=== PATIENT | female | born 1950 | race Caucasian/White ===

== ENCOUNTER → 2016-09-06 | Outpatient (CLI) | payer OTHER ==
[~2016-09-06] MED LIST: CYCLOBENZAPRINE10 MG PO; NAPROSYN500 MG PO; NKHM; NORCO 5-325 TA1 EACH PO; SKELAXIN800 M1 PO; VICODIN ES 7501 TAB PO
[2016-09-06 10:31] LABS: HEMOGLOBIN A1c 4.8 % (4.8-5.6)
[2016-09-06 10:48] LABS: ALBUMIN 3.9 gm/dl (3.1-4.5); ALKALINE PHOSPHATASE 110 U/L (45-117); BILIRUBIN, DIRECT 0.1 mg/dL (0.0-0.2); BILIRUBIN, TOTAL 0.6 mg/dl (0.2-1.0); BUN 9 mg/dl (7-24); CHOLESTEROL 218 mg/dL (<200); EST GLOM FILT AFRICAN AMERICAN > 60 ml/min; GLUCOSE 92 mg/dL (65-99); HDL CHOLESTEROL 79 mg/dl (40-60); LDL CHOLESTEROL 108 mg/dL (9-159); SGOT/AST 23 IU/L (3-35); SGPT/ALT 31 U/L (12-78); TOTAL PROTEIN 6.8 gm/dL (6.4-8.2); TRIGLYCERIDES 154 mg/dl (<150); VLDL CHOLESTEROL 31 mg/dL (6-40)
== END | disposition home or self-care (01) ==
LOC: LAB 09:59
PROVIDERS: Internal Medicine
DX: E78.4 Other hyperlipidemia (principal); E55.9 Vitamin D deficiency, unspecified; R73.02 Impaired glucose tolerance (oral); R74.8 Abnormal levels of other serum enzymes; Z79.1 Long term (current) use of non-steroidal anti-inflammatories (NSAID)

== ENCOUNTER → 2017-03-22 | Outpatient (CLI) | payer OTHER ==
[2017-03-22 10:40] LABS: ALBUMIN 3.7 gm/dl (3.1-4.5); BILIRUBIN, DIRECT 0.2 mg/dL (0.0-0.2); TOTAL PROTEIN 6.6 gm/dL (6.4-8.2)
== END | disposition home or self-care (01) ==
LOC: LAB 09:45
PROVIDERS: Internal Medicine
DX: E78.4 Other hyperlipidemia (principal); E55.9 Vitamin D deficiency, unspecified; R73.02 Impaired glucose tolerance (oral)

== ENCOUNTER → 2017-09-21 | Outpatient (CLI) | payer OTHER | END | disposition home or self-care (01) | LOC: ORTHO 00:21 | DX: M25.562 Pain in left knee (principal) ==

== ENCOUNTER → 2018-01-17 | Outpatient (CLI) | payer OTHER | END | disposition home or self-care (01) | LOC: RAD 10:52 | DX: Z13.820 Encounter for screening for osteoporosis (principal); N95.9 Unspecified menopausal and perimenopausal disorder ==

== ENCOUNTER 2018-05-24 21:06 | Inpatient (IN) | payer OTHER ==
--- NOTE | ~2018-05-24 | WRIGHTHP ---
[place], [place] PATIENT HISTORY AND PHYSICAL EXAM NAME: BREANAN JAQUEZ [facility] #: [id number] UNIT #: [id number] ROOM: 415 DOCTOR: BHARATH HAZEL MD BIRTHDATE: [birth year] DOS: 05/24/2018 HISTORY OF PRESENT ILLNESS: The patient is a 67-year-old female with a past medical history of: 1. Nicotine smoke dependence. 2. GERD and esophagitis. 3. Postmenopausal osteoporosis. 4. Vitamin D deficiency. 5. Urinary incontinence. The patient presented to my office yesterday with complaints of poor appetite, feeling sick and later on developing diarrhea. The patient was given oral rehydration salts to treat her dehydration and serum electrolytes were all ordered. Later on in the evening lab called me with a critically low sodium of 118 and the patient was sent over to the Emergency Department for further evaluation. In the ER, the patient was found to be hypovolemic, dehydrated and after initial evaluation admitted for further treatment. Following admission, the patient is starting to feel better with hydration and normal saline. The patient also has hypokalemia. No chest pain. No shortness of breath. No other GI or urinary symptoms. REVIEW OF SYSTEMS: LUNGS: No increasing shortness of breath. GASTROINTESTINAL: The patient with diarrhea and poor appetite. CARDIOVASCULAR: No chest pains or palpitations. FAMILY HISTORY: Noncontributory. HOME MEDICATIONS: Fosamax, vitamin D, glucosamine, oxybutynin. PHYSICAL EXAMINATION: GENERAL: Alert and oriented x 3, in no visible distress, just looking weak, generalized weakness. VITAL SIGNS: Blood pressure 87/46, heart rate of 91 beats per minute, breathing 18 times per minute, temperature of 99.7 degrees Fahrenheit. HEENT AND NECK: Extraocular movements are intact. Sclerae are anicteric. Oral mucosa is moist and clean. No obvious facial weakness. Neck is supple without any lymphadenopathy. No thyromegaly. No JVD. No carotid arterial bruits. LUNGS: Clear to auscultation. No wheezing. No rhonchi. CARDIOVASCULAR SYSTEM: Heart rate is regular in rate and rhythm. S1 and S2 normally audible. No significant murmur or any other abnormal cardiac sounds. ABDOMEN: Soft, nontender. No obvious organomegaly. Bowel sounds are present. No obvious herniation. EXTREMITIES: Without significant cyanosis or edema. Warm to touch. CENTRAL NERVOUS SYSTEM: Alert and oriented x 3. Cranial nerves II-XII are intact. Speech is normal. The patient is able to move all extremities. Normal muscle strength. Deep tendon reflexes are equal on both sides. Plantars were downgoing. IMPRESSION AND PLAN: [place], [place] PATIENT HISTORY AND PHYSICAL EXAM [facility]: [id number] #: [id number] ROOM: [facility] DOCTOR: BHARATH HAZEL MD BIRTHDATE: [birth year] 1. The patient presenting with hypovolemia and hypotension from diarrhea and poor appetite, admitted to the hospital and is being treated with hydration and being encouraged to eat. The patient's diarrhea has resolved. 2. Acute hyponatremia related to diarrhea and poor appetite, being replaced with normal saline. Sodium levels are improving. 3. Hypokalemia, again from diarrhea and poor appetite, is being replaced with extra potassium supplements. 4. Hypotension from hypovolemia from diarrhea and poor appetite, is being treated with hydration and blood pressures are improving. The patient is starting to feel better. 5. Generalized weakness from hypotension and dehydration. The patient has been encouraged to ambulate and she is starting to gain strength. BHARATH HAZEL MD CM:HISPHYS:PATIENT HISTORY AND PHYSICAL EXAMINATION 13 [phone] BHARATH HAZEL MD 05/25/181938 interface
--- NOTE | ~2018-05-24 | PR ---
[place], [place] PROGRESS NOTE NAME: BREANNA JAQUEZ UNIT #: [id number] ROOM: 415 DOCTOR: BHARATH HAZEL MD BIRTHDATE: [birth year] DOS: 05/28/2018 SUBJECTIVE: The patient continues to improve. OBJECTIVE: GENERAL APPEARANCE: The patient is alert and oriented x 3, in no visible distress. VITAL SIGNS: Blood pressure 134/70, heart rate of 80 beats per minute, breathing 22 times per minute, afebrile. HEENT AND NECK: Exam within normal limits. CARDIOVASCULAR SYSTEM: Heart rate is regular in rate and rhythm. S1 and S2 normally audible. LUNGS: Clear to auscultation. ABDOMEN: Soft, nontender. No obvious organomegaly. Bowel sounds are present. EXTREMITIES: Without significant cyanosis or edema. IMPRESSION: 1. The patient with severe dehydration, hyponatremia, hypokalemia, hypovolemia along with hypotension. Continues to improve with hydration with normal saline. Sodium level is normal now but the patient is still hypokalemic and will be given extra potassium supplements today. 2. Acute diarrhea with dehydration and hypovolemia, resolved. 3. Viral gastroenteritis and diarrhea with dehydration, poor appetite, has improved. The patient is eating and starting to eat better now. 4. Urinary tract infection with Escherichia coli sensitive to all antibiotics. The patient is being treated with IV Rocephin and improving. BHARATH HAZEL MD CM:PNTRANS [id number] BHARATH HAZEL MD 05/28/18 2354 interface
--- NOTE | ~2018-05-24 | EKG ---
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
--- NOTE | ~2018-05-24 | DS ---
[place], [place] DISCHARGE SUMMARY [id number] #: [id number] ROOM: 415 DOCTOR: BHARATH HAZEL MD BIRTHDATE: [birth year] DOS: 05/29/2018 DISCHARGE DIAGNOSES: 1. Severe hyponatremia related to diarrhea. 2. Hypovolemia and hypotension. 3. Viral gastroenteritis with diarrhea and dehydration and poor appetite. 4. Urinary tract infection with Escherichia coli sensitive to all antibiotics tested. 5. Hypokalemia from diarrhea. 6. Nicotine smoke dependence. 7. Gastroesophageal reflux disease and esophagitis. 8. Postmenopausal osteoporosis. 9. Vitamin D deficiency. 10. Chronic urinary incontinence. HOSPITAL COURSE: The patient presented to my office with poor appetite, feeling sick and also developing diarrhea. The patient decided not to get admitted to the hospital in my office and she was started on oral rehydration fluids at home. The patient ended up vomiting the rehydration fluids and her sodium level came back as 118 critically low from the blood work drawn in my office and later in the day, the patient was sent over to the Emergency Department by me and admitted for hydration with normal saline for hypovolemia, dehydration, from viral gastroenteritis. The patient's sodium level started improving and they become normal. Advanced weakness, adult failure to thrive and ambulatory dysfunction. The patient was kept on physical therapy and she improved and is feeling quite strong now. Hypokalemia from diarrhea improved with extra potassium supplements. Generalized weakness and hypotension, dehydration from diarrhea improved with treatment and physical therapy. Nausea controlled with ondansetron as needed. LABORATORY DATA: Stool cultures were negative. No leukocytosis. Hemoglobin 11.7 before discharge. Normal serum electrolytes, urinary tract infection with Escherichia coli, treated with IV Rocephin during this admission. DISCHARGE MANAGEMENT: The patient to take amoxicillin 500 mg 3 times a day for 5 more days, Fosamax 70 mg weekly. Vitamin C and multivitamins was discontinued. Oxybutynin 15 mg daily, glucosamine was also stopped. Vitamin D 5000 units daily, Citracal daily. Follow up at the office with me this week. [place], [place] DISCHARGE SUMMARY NAME: BREANNA JAQUEZ UNIT #: [id number] ROOM: 415 DOCTOR: BHARATH HAZEL MD BIRTHDATE: [birth year] BHARATH HAZEL MD CM:CAM [id number] BHARATH HAZEL MD 05/29/18 1454 interface
--- NOTE | ~2018-05-24 | PR ---
[place], [place] PROGRESS NOTE NAME: BREANNA JAQUEZ UNIT #: [id number] ROOM: 415 DOCTOR: ILIR SINHA,BHARATH Langston BIRTHDATE: [birth year] DOS: 05/27/2018 SUBJECTIVE: The patient is starting to feel better, but still somewhat weak, ambulating in the hallways. OBJECTIVE: VITAL SIGNS: Blood pressure 137/65, heart rate of 73 beats per minute, breathing normally, afebrile. IMPRESSION: 1. The patient with urinary tract infection with Escherichia coli, sensitive to all antibiotics, is being treated with IV Rocephin. 2. Severe hyponatremia from diarrhea and not being able to eat well from viral gastroenteritis, has resolved and sodium is normal at 137. 3. Generalized weakness and adult failure to thrive. The patient is to work with physical therapy. She is still feeling weak and is not back to her normal self. 4. Hypokalemia from diarrhea has resolved with extra potassium supplements and potassium level of 3.6 today. 5. Poor appetite from viral gastroenteritis and diarrhea and dehydration has improved with hydration with normal saline. 6. Uti with e-coli and treated and cystitis. BHARATH HAZEL MD CM:PNTRANS [phone] BHARATH HAZEL MD 06/15/18 0756 interface
--- NOTE | ~2018-05-24 | PR ---
[place], [place] PROGRESS NOTE NAME: BREANNA JAQUEZ UNIT #: [id number] ROOM: 415 DOCTOR: BHARATH HAZEL MD BIRTHDATE: [birth year] DOS: 05/26/2018 SUBJECTIVE: The patient continues to feel better. OBJECTIVE: GENERAL APPEARANCE: The patient is alert and oriented x 3, in no visible distress. VITAL SIGNS: Blood pressure 126/51, heart rate 83 beats per minute, breathing 16 times per minute, temperature 98.4 degrees Fahrenheit, going up to 99.7 degrees Fahrenheit. HEENT AND NECK: Exam within normal limits. CARDIOVASCULAR SYSTEM: Heart rate is regular in rate and rhythm. S1 and S2 normally audible. LUNGS: Clear to auscultation. ABDOMEN: Soft, nontender. No obvious organomegaly. Bowel sounds are present. EXTREMITIES: Without significant cyanosis or edema. IMPRESSION: 1. Urinary tract infection with heavy gram-negative bacilli, to be treated with Rocephin and then I will wait for final culture results. 2. Poor appetite, diarrhea and dehydration, being treated with hydration with normal saline. 3. Severe hyponatremia related to diarrhea, has improved to 134 as compared to 118 at the time of admission. 4. Hypokalemia from dehydration. I will give her extra potassium supplements today. 5. Generalized weakness, hypotension and dehydration, all improved with hydration with normal saline. BHARATH HAZEL MD CM:PNTRANS [phone] BHARATH HAZEL MD 05/27/18 0718 interface
[2018-05-24 21:08] VITALS: BP 98/45
[2018-05-24 22:00] LABS: ALBUMIN 2.8 gm/dl (3.1-4.5); ALKALINE PHOSPHATASE 319 U/L (45-117); BUN 8 mg/dl (7-24); CHLORIDE 89 mmol/L (98-107); CREATININE 0.94 mg/dL (0.55-1.02); POTASSIUM 3.4 mmol/L (3.5-5.1); SGOT/AST 23 IU/L (3-35); SGPT/ALT 64 U/L (12-78); SODIUM 122 mmol/L (136-145)
[2018-05-24 22:01] LABS: TROPONIN I < 0.015 ng/ml (<0.045)
--- NOTE | 2018-05-24 22:02 | NUR ---
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 PT GAIT UNSTEADY AT THIS TIME.
[2018-05-24 22:06] LABS: HEMATOCRIT 36.1 % (37.0-47.0); MEAN CELL VOLUME 86.6 fl (81.0-99.0); MEAN CORPUSCULAR HGB 33.6 pg (27.0-31.0); MEAN PLATELET VOLUME 9.3 fl (9.6-12.3); PLATELET COUNT AUTOMATED 171 10*3/uL (130-400); RED BLOOD COUNT 4.17 10*6/uL (4.10-5.10); RED CELL DISTRI WIDTH 11.9 % (0-14.5); WHITE BLOOD COUNT 11.2 10*3/uL (4.8-10.8)
--- NOTE | 2018-05-24 22:09 | NUR ---
PT ASSISTED BACK TO BED, UNABLE TO VOID AT THIS TIME.
[2018-05-24 22:10] VITALS: BP 91/44
[2018-05-24 22:10] LABS: MEAN CORPUSCULAR HGB CONC 38.8 g/dl (33.0-37.0)
[2018-05-24 22:13] LABS: PLATELET SUFFICIENCY NORMAL (NORMAL); TOTAL CELLS COUNTED 100 #CELLS
[2018-05-24 22:14] LABS: POLYCHROMASIA SLIGHT
[2018-05-24 22:16] LABS: BURR CELLS FEW
[2018-05-24 22:44] VITALS: BP 98/35
[2018-05-24 23:20] VITALS: BP 111/54
--- NOTE | 2018-05-24 23:20 | NUR ---
A 67, admitted to 4E, under the services of Dr. ILIR SINHA,BHARATH Langston with a diagnosis of HYPONATREMIA. Chief complaint is N/V/D, WEAKNESS. Patient arrived via stretcher from ER. Monitor applied. Initial assessment completed. Vital signs taken and recorded. DR. ILIR SINHA,BHARATH Langston notified of admission to the unit. Orders received. See assessment for past medical history, medications and allergies. Patient and/or family oriented to unit. Clothing/patient valuable form completed. MARCO ANTONIO GALVEZ
[2018-05-24] MEDS ORDERED: ALENDRONATE SOD70 M1 PO (23:35)
[2018-05-24] MEDS ORDERED: CALCIUM CARBON600 M4 PO (23:37)
[2018-05-24] MEDS ORDERED: VITAMIN D5000 UNIT PO (23:37)
[2018-05-24] MEDS ORDERED: CENTRUM SILVER1 EAC1 PO (23:37)
[2018-05-24] MEDS ORDERED: OSTEO BI-FLEX1 EACH PO (23:39)
[2018-05-24] MEDS ORDERED: PHARMASSURE VI500 MG PO (23:40)
[2018-05-24] MEDS ORDERED: OXYBUTYNIN CHLO15 MG PO (23:41)
--- NOTE | 2018-05-25 | NUR ---
CALLED DR. HAZEL AND NOTIFIED HIM OF PT. CONDITION AND ORDERS RECEIVED.
[2018-05-25 00:26] LABS: BILIRUBIN NEGATIVE (NEGATIVE); BLOOD 3+ (NEGATIVE); CLARITY SL CLOUDY (CLEAR); COLOR YELLOW (YELLOW); GLUCOSE NEGATIVE (NEGATIVE); KETONE NEGATIVE (NEGATIVE); LEUKO ESTERASE 3+ (NEGATIVE); NITRITE NEGATIVE (NEGATIVE); PH 6.5 (5.0-9.0); SPECIFIC GRAVITY <= 1.005 (1.005-1.030)
[2018-05-25 00:36] LABS: WBC 31-40 wbc/hpf (0-5)
[2018-05-25 00:37] LABS: BACTERIA 3+; RBC 21-30 rbc/hpf (0-2)
--- NOTE | 2018-05-25 03:20 | NUR ---
UP TO BATHROOM AND VOIDED CLEAR YELLOW URINE AND RETURNED TO BED AND WENT BACK TO SLEEP.
[2018-05-25 06:27] LABS: BUN 7 mg/dl (7-24); CHLORIDE 97 mmol/L (98-107); CREATININE 0.87 mg/dL (0.55-1.02); POTASSIUM 3.3 mmol/L (3.5-5.1); SODIUM 128 mmol/L (136-145)
[2018-05-25 06:57] LABS: HEMATOCRIT 31.6 % (37.0-47.0); MEAN CELL VOLUME 89.5 fl (81.0-99.0); MEAN CORPUSCULAR HGB 33.7 pg (27.0-31.0); MEAN PLATELET VOLUME 9.7 fl (9.6-12.3); PLATELET COUNT AUTOMATED 178 10*3/uL (130-400); RED BLOOD COUNT 3.53 10*6/uL (4.10-5.10); RED CELL DISTRI WIDTH 12.2 % (0-14.5); WHITE BLOOD COUNT 8.7 10*3/uL (4.8-10.8)
[2018-05-25 06:59] LABS: HEMOGLOBIN 11.9 g/dl (12.0-16.0); MEAN CORPUSCULAR HGB CONC 37.7 g/dl (33.0-37.0)
[2018-05-25 07:43] LABS: BURR CELLS MODERATE; PLATELET SUFFICIENCY NORMAL (NORMAL); TOTAL CELLS COUNTED 100 #CELLS
[2018-05-25 08:00] VITALS: BP 102/46
--- NOTE | 2018-05-25 09:00 | NUR ---
Buyer Liaison in to talk to patient. Patient states lives at home alone with her family checking in on her. There are 10 steps in the home. Physician: Dr. Cortez Estrada Pharmacy: [facility] Home health services: none Patient's level of ADLs: INDEPENDENT Patient has working utilities: yes DME: none Follow-up physician's appointment after d/c: she prefers to make her own follow up appt after discharge Does patient want to access PORTAL?: no Discharge plan discussed with patient. She lives at home alone with her family checking in on her. She is independent in her ADLs and ambulation. Discussed home health care services and she denies any home needs at this time. When medically stable she will be discharged to home. Her brother will transport on discharge. MAYRA LARA
[2018-05-25 12:00] VITALS: BP 100/56
[2018-05-25 16:00] VITALS: BP 87/46
[2018-05-25 16:30] VITALS: BP 98/52
--- NOTE | 2018-05-25 16:45 | NUR ---
NOTIFIED DR HAZEL,WHILE HE ROUNDED ON FLOOR,PT WAS STILL HYPOTENSIVE AND MANUAL PRESSURE WAS 98/52. DR HAZEL STATED HE "WOULD LOOK AT IT".
[2018-05-25 20:00] VITALS: BP 92/54
--- NOTE | 2018-05-25 20:41 | NUR ---
AWAKE/ALERT FOR BEDSIDE SHIFT REPORT. FAMILY MEMBER AT BEDSIDE.
[2018-05-26] VITALS: BP 90/47
--- NOTE | 2018-05-26 02:18 | NUR ---
PATIENT RESTING QUIETLY IN BED. NO VOICED COMPLAINTS AT THIS TIME. BED IN LOW POSITION, WHEELS LOCKED, CALL LIGHT IN REACH. IV FLUIDS MAINTAINED PER ORDER.
[2018-05-26 06:13] LABS: BASO % 0.2 % (0.0-1.0); EOS % 0.3 % (1.0-4.0); HEMATOCRIT 31.7 % (37.0-47.0); HEMOGLOBIN 11.3 g/dl (12.0-16.0); LYMPH # 0.5 10*3/uL (1.3-4.4); LYMPH % 8.6 % (27.0-41.0); MEAN CELL VOLUME 90.8 fl (81.0-99.0); MEAN CORPUSCULAR HGB 32.4 pg (27.0-31.0); MEAN CORPUSCULAR HGB CONC 35.6 g/dl (33.0-37.0); MONO # 0.5 10*3/uL (0.1-1.0); MONO % 8.1 % (3.0-9.0); NEUT # 4.9 10*3/uL (2.3-7.9); NEUT % 81.6 % (47.0-73.0); PLATELET COUNT AUTOMATED 218 10*3/uL (130-400); RED BLOOD COUNT 3.49 10*6/uL (4.10-5.10); RED CELL DISTRI WIDTH 12.5 % (0-14.5); WHITE BLOOD COUNT 5.9 10*3/uL (4.8-10.8)
[2018-05-26 06:19] LABS: BUN 7 mg/dl (7-24); CHLORIDE 104 mmol/L (98-107); CREATININE 0.73 mg/dL (0.55-1.02); POTASSIUM 3.4 mmol/L (3.5-5.1); SODIUM 134 mmol/L (136-145)
[2018-05-26 07:19] VITALS: BP 108/62
--- NOTE | 2018-05-26 09:00 | NUR ---
Shutdown Coordinator in to see patient. No new needs or request at this time. She denies any home needs. When medically stable she will be discharged to home.
[2018-05-26 12:00] VITALS: BP 108/54
[2018-05-26 16:00] VITALS: BP 126/51
[2018-05-26 20:00] VITALS: BP 141/65
--- NOTE | 2018-05-26 20:06 | NUR ---
AWAKE/ALERT FOR SHIFT ASSESSMENT. FAMILY MEMBER AT BEDSIDE. RESPIRATIONS EASY/REG ON RA. IV FLUIDS MAINTAINED PER ORDER. HEART MONITOR REMOVED AND RETURNED TO FLOOR PER DR HAZEL ORDER.
[2018-05-27] VITALS: BP 124/75
[2018-05-27 06:58] LABS: BASO % 0.3 % (0.0-1.0); EOS # 0.1 10*3/uL (0.0-0.4); EOS % 1.4 % (1.0-4.0); HEMATOCRIT 31.9 % (37.0-47.0); HEMOGLOBIN 11.4 g/dl (12.0-16.0); LYMPH % 15.4 % (27.0-41.0); MEAN CELL VOLUME 91.9 fl (81.0-99.0); MEAN CORPUSCULAR HGB 32.9 pg (27.0-31.0); MEAN CORPUSCULAR HGB CONC 35.7 g/dl (33.0-37.0); MEAN PLATELET VOLUME 9.1 fl (9.6-12.3); MONO # 0.6 10*3/uL (0.1-1.0); NEUT # 4.7 10*3/uL (2.3-7.9); NEUT % 73.1 % (47.0-73.0); PLATELET COUNT AUTOMATED 243 10*3/uL (130-400); RED BLOOD COUNT 3.47 10*6/uL (4.10-5.10); RED CELL DISTRI WIDTH 12.8 % (0-14.5); WHITE BLOOD COUNT 6.4 10*3/uL (4.8-10.8)
[2018-05-27 07:10] LABS: CHLORIDE 107 mmol/L (98-107); POTASSIUM 3.6 mmol/L (3.5-5.1); SODIUM 137 mmol/L (136-145)
[2018-05-27 07:17] LABS: BUN 6 mg/dl (7-24); CREATININE 0.64 mg/dL (0.55-1.02)
[2018-05-27 08:00] VITALS: BP 129/67
[2018-05-27 12:00] VITALS: BP 125/64
[2018-05-27 16:00] VITALS: BP 137/65
--- NOTE | 2018-05-27 16:06 | NUR ---
Patient states she is feeling better but is feeling weak.
[2018-05-27 20:00] VITALS: BP 136/70
--- NOTE | 2018-05-27 20:49 | NUR ---
AWAKE/ALERT FOR SHIFT ASSESSMENT. FAMILY MEMBERS AT BEDSIDE. RESPIRATIONS EASY/REG ON RA. NO VOICED COMPLAINTS AT THIS TIME. IV FLUIDS MAINTAINED PER ORDER, CALL LIGHT IN REACH
[2018-05-28] VITALS: BP 121/68
[2018-05-28 06:29] LABS: BASO % 0.4 % (0.0-1.0); EOS # 0.1 10*3/uL (0.0-0.4); EOS % 2.5 % (1.0-4.0); HEMATOCRIT 31.4 % (37.0-47.0); HEMOGLOBIN 10.7 g/dl (12.0-16.0); LYMPH # 1.1 10*3/uL (1.3-4.4); LYMPH % 20.1 % (27.0-41.0); MEAN CELL VOLUME 92.9 fl (81.0-99.0); MEAN CORPUSCULAR HGB 31.7 pg (27.0-31.0); MEAN CORPUSCULAR HGB CONC 34.1 g/dl (33.0-37.0); MONO # 0.6 10*3/uL (0.1-1.0); MONO % 10.9 % (3.0-9.0); NEUT # 3.4 10*3/uL (2.3-7.9); PLATELET COUNT AUTOMATED 248 10*3/uL (130-400); RED BLOOD COUNT 3.38 10*6/uL (4.10-5.10); RED CELL DISTRI WIDTH 12.9 % (0-14.5); WHITE BLOOD COUNT 5.2 10*3/uL (4.8-10.8)
[2018-05-28 06:34] LABS: BUN 6 mg/dl (7-24); CHLORIDE 108 mmol/L (98-107); POTASSIUM 3.4 mmol/L (3.5-5.1); SODIUM 140 mmol/L (136-145)
[2018-05-28 08:00] VITALS: BP 118/67
--- NOTE | 2018-05-28 09:00 | NUR ---
SITTING AT BEDSIDE, NO DISTRESS NOTED. RESPIRATIONS EASY. LUNGS DIMINISHED, CLEAR. PULSE OX 100% RA. INFREQ SMOKERS COUGH. ABD SOFT WITH NORMO BS, DENIES N/V/D. IV FLUIDS INFUSING PER ORDER. CALL LIGHT WITHIN REACH. NO VOICED COMPLAINTS
--- NOTE | 2018-05-28 10:05 | NUR ---
24 HR chart check completed.
[2018-05-28 12:00] VITALS: BP 134/70
--- NOTE | 2018-05-28 15:45 | NUR ---
DR HAZEL HERE TO ASSESS PATIENT AND DISCUSS PLAN OF CARE
[2018-05-28 16:00] VITALS: BP 129/62
--- NOTE | 2018-05-28 17:00 | NUR ---
VISITING WITH FRIEND. NO DISTRESS NOTED.
--- NOTE | 2018-05-28 19:00 | NUR ---
AMBULATING HALLWAY. NO DISTRES NOTED.
[2018-05-28 20:00] VITALS: BP 129/63
[2018-05-29] VITALS: BP 123/59
[2018-05-29 06:21] LABS: BUN 7 mg/dl (7-24); CHLORIDE 104 mmol/L (98-107); CREATININE 0.56 mg/dL (0.55-1.02); POTASSIUM 4.2 mmol/L (3.5-5.1); SODIUM 138 mmol/L (136-145)
[2018-05-29 06:32] LABS: BASO % 0.6 % (0.0-1.0); EOS # 0.2 10*3/uL (0.0-0.4); EOS % 2.3 % (1.0-4.0); HEMATOCRIT 33.9 % (37.0-47.0); HEMOGLOBIN 11.7 g/dl (12.0-16.0); LYMPH # 1.2 10*3/uL (1.3-4.4); LYMPH % 17.3 % (27.0-41.0); MEAN CELL VOLUME 93.6 fl (81.0-99.0); MEAN CORPUSCULAR HGB 32.3 pg (27.0-31.0); MEAN CORPUSCULAR HGB CONC 34.5 g/dl (33.0-37.0); MEAN PLATELET VOLUME 8.7 fl (9.6-12.3); MONO # 0.6 10*3/uL (0.1-1.0); MONO % 7.9 % (3.0-9.0); NEUT # 4.9 10*3/uL (2.3-7.9); NEUT % 70.5 % (47.0-73.0); RED BLOOD COUNT 3.62 10*6/uL (4.10-5.10); RED CELL DISTRI WIDTH 12.6 % (0-14.5)
[2018-05-29 06:35] LABS: PLATELET COUNT AUTOMATED 333 10*3/uL (130-400)
[2018-05-29 08:00] VITALS: BP 122/56
--- NOTE | 2018-05-29 10:00 | NUR ---
CALLED DR HAZEL TO LET HIM KNOW THAT THE PATIENT'S LABS FOR SODIUM AND CHLORIDE WERE WITHIN NORMAL LIMITS AND THAT THE PATIENT HAS BEGUN TO ACCUMULATE FLUID IN HER LOWER EXTREMITIES WITH 1+ PITTING EDEMA. REQUESTED TO STOP THE PATIENT'S FLUIDS. NEW ORDER TO STOP RECEIVED.
[2018-05-29 12:00] VITALS: BP 120/66
[2018-05-29] MEDS ORDERED: AMOXICILLIN500 M3 PO (14:14)
--- NOTE | 2018-05-29 15:13 | NUR ---
Discharge instructions reviewed with patient/family. Patient receptive and verbalizes understanding. Follow-up care arranged. Written instructions given to patient/family. Patient taken from the floor via wheelchair by aide. No s/s of distress. ADALBERTO HILL
[2018-08-23] MEDS ORDERED: MULTIVITAMINS1 EAC5 PO (10:34)
[2018-08-23] MEDS ORDERED: OSTEO BI-FLEX1 EAC1 PO (10:36)
== END 2018-05-29 15:13 | disposition home or self-care (01) | DRG 690 ==
LOC: ED 21:06 → 4E 22:48 → EDHOLD 22:48 → 4E 22:56
PROVIDERS: Physician Assistant; ADMIT Internal Medicine
DX: N39.0 Urinary tract infection, site not specified (principal); E87.1 Hypo-osmolality and hyponatremia; E44.1 Mild protein-calorie malnutrition; E86.0 Dehydration; I25.10 Atherosclerotic heart disease of native coronary artery without angina pectoris; Z95.1 Presence of aortocoronary bypass graft; Z98.51 Tubal ligation status; Z72.89 Other problems related to lifestyle; F17.200 Nicotine dependence, unspecified, uncomplicated; K21.0 Gastro-esophageal reflux disease with esophagitis; M81.0 Age-related osteoporosis without current pathological fracture; E55.9 Vitamin D deficiency, unspecified; E87.6 Hypokalemia; I95.9 Hypotension, unspecified; B96.20 Unspecified Escherichia coli [E. coli] as the cause of diseases classified elsewhere; A08.4 Viral intestinal infection, unspecified; Z68.28 Body mass index [BMI] 28.0-28.9, adult

== ENCOUNTER 2020-09-01 12:06 | Emergency (ER) | payer OTHER ==
[~2020-09-01] VITALS: Ht 165.1 cm; Wt 68.0 kg
[~2020-09-01 12:06] MED LIST changes: +ALENDRONATE SOD70 M1 PO; +AMOXICILLIN500 M3 PO; +CALCIUM CARBON600 M4 PO; +CENTRUM SILVER1 EAC1 PO; +MULTIVITAMINS1 EAC5 PO; +OSTEO BI-FLEX1 EAC1 PO; +OSTEO BI-FLEX1 EACH PO; +OXYBUTYNIN CHLO15 MG PO; +PHARMASSURE VI500 MG PO; +VITAMIN D5000 UNIT PO
[2020-09-01 12:55] LABS: BILIRUBIN Negative (Negative); BLOOD 2+ (Negative); CLARITY Clear (Clear); COLOR Yellow (Yellow); GLUCOSE Negative (Negative); KETONE Negative (Negative); LEUKO ESTERASE Negative (Negative); NITRITE Negative (Negative); PH 6.5 (4.5-8.0); SPECIFIC GRAVITY <= 1.005 (1.001-1.030); UROBILINOGEN 0.2 E.U./dl (0.0-1.0)
[2020-09-01 13:04] LABS: BACTERIA TRACE; EPITHELIAL CELLS 0-2; WBC 0-2 wbc/hpf (0-5)
[2020-09-01 13:07] LABS: BASO % 0.5 % (0.0-1.0); EOS # 0.1 10*3/uL (0.0-0.4); EOS % 1.5 % (1.0-4.0); HEMATOCRIT 36.7 % (37.0-47.0); LYMPH # 1.2 10*3/uL (1.3-4.4); LYMPH % 15.8 % (27.0-41.0); MEAN CELL VOLUME 85.9 fl (81.0-99.0); MEAN CORPUSCULAR HGB 30.9 pg (27.0-31.0); MEAN PLATELET VOLUME 8.9 fl (9.6-12.3); MONO # 0.4 10*3/uL (0.1-1.0); MONO % 5.6 % (3.0-9.0); NEUT # 5.8 10*3/uL (2.3-7.9); NEUT % 76.5 % (47.0-73.0); PLATELET COUNT AUTOMATED 257 10*3/uL (130-400); RED BLOOD COUNT 4.27 10*6/uL (4.10-5.10); RED CELL DISTRI WIDTH 13.4 % (0-14.5); WHITE BLOOD COUNT 7.6 10*3/uL (4.8-10.8)
[2020-09-01 13:21] LABS: ALBUMIN 3.9 gm/dl (3.1-4.5); ALKALINE PHOSPHATASE 302 U/L (45-117); BUN 9 mg/dl (7-24); CHLORIDE 98 mmol/L (98-107); CREATININE 0.62 mg/dL (0.55-1.02); SGOT/AST 25 IU/L (3-35); SGPT/ALT 38 U/L (12-78); SODIUM 129 mmol/L (136-145); TOTAL PROTEIN 7.1 gm/dL (6.4-8.2)
[2020-09-01] MEDS ORDERED: DIFLUCAN150 MG PO (13:36)
[2020-09-01] MEDS ORDERED: CIPRO500 MG PO (13:36)
== END 2020-09-01 14:02 | disposition home or self-care (01) ==
LOC: ED 12:06
PROVIDERS: Family Medicine
DX: N39.0 Urinary tract infection, site not specified (principal); F17.200 Nicotine dependence, unspecified, uncomplicated; Z79.899 Other long term (current) drug therapy; Z98.890 Other specified postprocedural states

== ENCOUNTER 2020-09-03 03:39 | Emergency (ER) | payer OTHER ==
[~2020-09-03] VITALS: Ht 165.1 cm; Wt 68.0 kg
[~2020-09-03 03:39] MED LIST changes: +CIPRO500 MG PO; +DIFLUCAN150 MG PO
[2020-09-03] MEDS ORDERED: ULTRAM50 MG PO (05:02)
== END 2020-09-03 05:22 | disposition home or self-care (01) ==
LOC: ED 03:39
DX: M19.90 Unspecified osteoarthritis, unspecified site (principal); F17.200 Nicotine dependence, unspecified, uncomplicated; Z98.51 Tubal ligation status; Z98.890 Other specified postprocedural states; Z79.899 Other long term (current) drug therapy; Z87.442 Personal history of urinary calculi

== ENCOUNTER → 2020-10-02 | Outpatient (CLI) | payer MEDICARE ==
[~2020-10-02] MED LIST changes: +ULTRAM50 MG PO
[2020-10-02 11:09] LABS: BASO # 0.1 10*3/uL (0.0-0.1); BASO % 0.8 % (0.0-1.0); EOS # 0.2 10*3/uL (0.0-0.4); EOS % 2.4 % (1.0-4.0); HEMATOCRIT 39.3 % (37.0-47.0); LYMPH # 1.3 10*3/uL (1.3-4.4); LYMPH % 20.5 % (27.0-41.0); MEAN CELL VOLUME 89.5 fl (81.0-99.0); MEAN CORPUSCULAR HGB 30.8 pg (27.0-31.0); MEAN CORPUSCULAR HGB CONC 34.4 g/dl (33.0-37.0); MEAN PLATELET VOLUME 8.9 fl (9.6-12.3); MONO # 0.4 10*3/uL (0.1-1.0); MONO % 6.1 % (3.0-9.0); NEUT # 4.6 10*3/uL (2.3-7.9); PLATELET COUNT AUTOMATED 267 10*3/uL (130-400); RED BLOOD COUNT 4.39 10*6/uL (4.10-5.10); RED CELL DISTRI WIDTH 12.9 % (0-14.5); WHITE BLOOD COUNT 6.5 10*3/uL (4.8-10.8)
[2020-10-02 11:36] LABS: ALBUMIN 4.1 gm/dl (3.1-4.5); ALKALINE PHOSPHATASE 286 U/L (45-117); BUN 8 mg/dl (7-24); CHLORIDE 100 mmol/L (98-107); CHOLESTEROL 151 mg/dL (<200); CREATININE 0.71 mg/dL (0.55-1.02); FREE T4 1.01 ng/dl (0.76-1.46); LDL CHOLESTEROL 50 mg/dL (9-159); POTASSIUM 4.2 mmol/L (3.5-5.1); SGOT/AST 31 IU/L (3-35); SGPT/ALT 67 U/L (12-78); SODIUM 132 mmol/L (136-145); TOTAL PROTEIN 7.1 gm/dL (6.4-8.2); TRIGLYCERIDES 196 mg/dl (<150)
[2020-10-02 12:56] LABS: VITAMIN D, 25-HYDROXY 27.2 ng/mL (30-100)
== END | disposition home or self-care (01) ==
LOC: LAB 10:20
PROVIDERS: ATTEND Internal Medicine
DX: E03.9 Hypothyroidism, unspecified (principal); D52.9 Folate deficiency anemia, unspecified; D51.9 Vitamin B12 deficiency anemia, unspecified; R70.0 Elevated erythrocyte sedimentation rate; R79.82 Elevated C-reactive protein (CRP); R74.8 Abnormal levels of other serum enzymes; R79.89 Other specified abnormal findings of blood chemistry; R53.81 Other malaise; E55.9 Vitamin D deficiency, unspecified; Z13.0 Encounter for screening for diseases of the blood and blood-forming organs and certain disorders involving the immune mechanism; Z13.1 Encounter for screening for diabetes mellitus; Z13.21 Encounter for screening for nutritional disorder; Z13.220 Encounter for screening for lipoid disorders; Z00.01 Encounter for general adult medical examination with abnormal findings

== ENCOUNTER → 2020-12-30 | Outpatient (CLI) | payer MEDICARE | END | disposition home or self-care (01) | LOC: CT 15:50 | PROVIDERS: ATTEND Urology | DX: N13.2 Hydronephrosis with renal and ureteral calculous obstruction (principal); K80.20 Calculus of gallbladder without cholecystitis without obstruction; I25.10 Atherosclerotic heart disease of native coronary artery without angina pectoris; K57.30 Diverticulosis of large intestine without perforation or abscess without bleeding ==

== ENCOUNTER → 2021-07-01 | Outpatient (CLI) | payer MEDICARE | END | disposition home or self-care (01) | LOC: RAD 13:22 | PROVIDERS: ATTEND Internal Medicine | DX: M81.0 Age-related osteoporosis without current pathological fracture (principal) ==